=== PATIENT | female | born 1995 | race Hispanic/Latino ===

== ENCOUNTER 2016-11-19 10:52 | Emergency (ER) | payer MEDICAID, OTHER ==
[2016-11-19 11:48] LABS: Basophils % (Auto) 0.7 % (0.0-1.8); Eosinophils % (Auto) 2.7 % (0.0-4.3); Hemoglobin 12.5 gm/dl (10.1-14.3); Mean Corpuscular HGB Conc 32 % (30-34); Mean Corpuscular Hemoglobin 27 pg (28-32); Mean Corpuscular Volume 84 fl (79-97); Platelet Count 338 K/mm3 (140-440); Red Blood Count 4.64 M/mm3 (3.65-5.03); Red Cell Distribution Width 15.5 % (13.2-15.2); White Blood Count 10.8 K/mm3 (4.5-11.0)
[2016-11-19 12:11] LABS: Alanine Aminotransferase 11 units/L (7-56); Albumin/Globulin Ratio 1.1 %; Alkaline Phosphatase 68 units/L (35-129); Anion Gap 19 mmol/L; BUN/Creatinine Ratio 18.75; Bilirubin,Total 0.3 mg/dL (0.1-1.2); Blood Urea Nitrogen 15 mg/dL (7-17); Calcium 9.5 mg/dL (8.4-10.2); Carbon Dioxide 21 mmol/L (22-30); Chloride 104.9 mmol/L (98-107); Glucose 88 mg/dL (65-100); Lipase 17 units/L (13-60); Potassium 4.5 mmol/L (3.6-5.0); Sodium 140 mmol/L (137-145); Total Protein 7.5 g/dL (6.3-8.2)
[2016-11-19 13:32] LABS: Bilirubin,Urine NEG (Negative); Blood,Urine NEG (Negative); Ketones,Urine NEG (Negative); Leukocyte Esterase,Urine NEG (Negative); Mucus,Urine FEW /HPF; Nitrite,Urine NEG (Negative); Protein,Urine <15 mg/dL mg/dL (Negative); Urobilinogen,Urine < 2.0 mg/dL (<2.0)
--- NOTE | 2016-11-19 17:36 | Emergency Department Report ---
HPI - General Chief Complaint: Abdominal Pain Time Seen by Provider: 11/19/16 17:21 - HPI HPI: This is a 21-year-old female presents to the emergency department from her primary care doctor's office, Dr. Liane Meza, with the need for further evaluation and and a probable CT scan of the abdomen and pelvis. The patient has been having right lower quadrant abdominal pain off and on for the past few weeks but it really worsened over the past few days. It is associated with some nausea without vomiting. She denies any fever, back pain, dysuria, vaginal bleeding or discharge. She denies any significant past medical history. She says that she was seen by the PCP today and when she palpated her abdomen she was concerned for appendicitis versus a pelvic abscess and sent her in for further evaluation. No recent travel or sick contacts at home. She is not taken anything for symptoms prior to presentation. ED Past Medical Hx - Past Medical History Hx Asthma: Yes Additional medical history: surgery for transposition of the great arteries at - Surgical History Additional Surgical History: Heart Surgery - Social History Smoking Status: Current Some Day Smoker Substance Use Type: Alcohol - Medications Home Medications: Home Medications Medication Instructions Recorded Confirmed Last Taken Type HYDROcodone/APAP 5-325 [[place] 1 each PO Q6HR PRN #10 tablet 11/19/16 Unknown Rx 5/325] ED Review of Systems ROS: Stated complaint: ABD PAIN/TENDERNESS/SENT BY DOC Other details as noted in HPI Comment: All other systems reviewed and negative Constitutional: denies: chills, fever Eyes: denies: eye pain, eye discharge, vision change ENT: denies: ear pain, throat pain Respiratory: denies: cough, shortness of breath, wheezing Cardiovascular: denies: chest pain, palpitations Gastrointestinal: abdominal pain, nausea. denies: vomiting Genitourinary: denies: urgency, dysuria, discharge Musculoskeletal: denies: back pain, joint swelling, arthralgia Skin: denies: rash, lesions Neurological: denies: headache, weakness, paresthesias Physical Exam - Physical Exam Vital Signs: Vital Signs 11/19/16 11:07 Temperature 98.2 F Pulse Rate 82 Respiratory 20 Rate Blood Pressure 156/86 O2 Sat by Pulse 98 Oximetry Physical Exam: GENERAL: The patient is well-developed well-nourished. HEENT: Normocephalic. Atraumatic. Extraocular motions are intact. Patient has moist mucous membranes. Pupils equal reactive to light bilaterally. NECK: Supple. Trachea is midline. CHEST/LUNGS: Clear to auscultation. There is no respiratory distress noted. HEART/CARDIOVASCULAR: Regular. There is no tachycardia. There is no gallop rub or murmur. ABDOMEN: Abdomen is soft. There is tenderness to palpation to the right lower quadrant and the lower middle abdomen to palpation. No guarding rebound tenderness. No peritoneal signs to heel strike. Patient has normal bowel sounds. There is no abdominal distention. Obese habitus. SKIN: Skin is warm and dry. NEURO: The patient is awake, alert, and oriented. The patient is cooperative. The patient has no focal neurologic deficits. The patient has normal speech. MUSCULOSKELETAL: There is no tenderness or deformity. There is no limitation range of motion. There is no evidence of acute injury. ED Course Vital Signs 11/19/16 11:07 Temperature 98.2 F Pulse Rate 82 Respiratory 20 Rate Blood Pressure 156/86 O2 Sat by Pulse 98 Oximetry ED Medical Decision Making - Lab Data Result diagrams: 11/19/16 11:32 11/19/16 11:32 - Radiology Data Radiology results: report reviewed CT of the abdomen and pelvis with IV contrast shows a probable large right ovarian cyst. The appendix is normal in appearance. Bladder appears normal. Uterus appears normal size. There is a rounded mass of low attenuation in the right adnexa that measures 5.8 cm x 4.9 cm and likely represents an ovarian cyst. - Medical Decision Making 21 year old female presents to the emergency department with some right lower quadrant abdominal pain that has been going on over the past few weeks but worsened and became more consistent over the past 3 days. Patient's labs are mostly unremarkable. There is no signs of infection in the blood or urine, electrolyte abnormalities, renal insufficiency or glucose abnormalities. Patient has normal bili labs including bilirubin, lipase and LFTs. Urinalysis does not show any urinary tract infection and patient is not . The patient was sent in by her primary care doctor to rule out appendicitis versus pelvic abscess and requested a CT scan, a CT scan was done that showed a probable right ovarian cyst that is about 6 cm x 5 cm. This very well could be the source of the patient's discomfort. Her vital signs show some mild hypertension but otherwise appeared stable throughout her ED course including being afebrile. From these reasons patient appears safe for discharge home at this time. She'll be encouraged to follow-up with her primary care doctor but will also be given referrals for [facility]. She'll be given some pain medication. She'll return to the ER with any worsening of her symptoms or any acute distress. - Differential Diagnosis ovarian cyst, appendicitis, , fibroid, UTI, kidney stone Critical Care Time: No Critical care attestation.: If time is entered above; I have spent that time in minutes in the direct care of this critically ill patient, excluding procedure time. ED Disposition Clinical Impression: Abdominal pain Qualifiers: Abdominal location: right lower quadrant Qualified Code(s): R10.31 - Right lower quadrant pain Ovarian cyst Qualifiers: Laterality: right Qualified Code(s): N83.201 - Unspecified ovarian cyst, right side Hypertension Qualifiers: Hypertension type: essential hypertension Qualified Code(s): I10 - Essential ( primary) hypertension Disposition: DISCHARGED TO HOME OR SELFCARE Is pt being admited?: No Condition: Stable Instructions: Abdominal Pain (ED), Hypertension (ED), Ovarian Cyst (ED) Additional Instructions: Please follow-up with your primary care doctor in the next few days. I have also given you a referral for some local [facility] physicians to follow-up regarding the ovarian cyst. Return to the emergency department with any worsening of your symptoms or any acute distress. You've been prescribed a medication that is sedating. Therefore this medication cannot be mixed with alcohol, or taken prior to driving, working, or being responsible for children. Prescriptions: HYDROcodone/APAP 5-325 [[place] 5/325] 1 each PO Q6HR PRN #10 tablet PRN Reason: Pain Referrals: ALLIE MEZA MD [Staff Physician] - 3-5 Days PAOLO LUCIO MD [Staff Physician] - 3-5 Days CHON TAYLOR MD [Staff Physician] - 3-5 Days Time of Disposition: 18:38
--- NOTE | 2016-11-19 18:21 | Cat Scan Report ---
FINAL REPORT PROCEDURE: CT abdomen with contrast. TECHNIQUE: Computerized axial tomography of the abdomen and pelvis was performed after the IV injection of iodinated nonionic contrast. HISTORY: Right lower quadrant abdominal pain. COMPARISON: No prior studies are available for comparison. FINDINGS: The lung bases are clear. There are no pleural effusions. The heart size is normal. The liver, spleen and pancreas appear normal. The gallbladder is present. The adrenal glands are not enlarged. Both kidneys appear normal in size and configuration. The abdominal aorta has a normal caliber. There is no retroperitoneal adenopathy. The unopacified gastrointestinal tract is unremarkable. A normal appendix is visible. The bladder appears normal. The uterus appears normal in size. There is a rounded mass of low attenuation in the right adnexa. This measures 5.8 centimeters x 4.9 centimeters in cross-section. It likely represents an ovarian cyst. This is better evaluated by ultrasound scanning. There is no fluid in the cul-de-sac. The regional skeleton appears intact. IMPRESSION: Probable large right ovarian cyst.
[2016-11-19 18:54] VITALS: BP 131/84
== END 2016-11-19 18:52 | disposition home or self-care (01) ==
LOC: ED 10:52
DX: N83.201 Unspecified ovarian cyst, right side (principal); R10.31 Right lower quadrant pain; I10 Essential (primary) hypertension; J45.909 Unspecified asthma, uncomplicated; Z72.0 Tobacco use
CPT/HCPCS: 36415; 74177; 80053; 81001; 81025; 83690; 85025; 99284; Q9967